=== PATIENT | male | born 1935 | race Caucasian/White ===

== ENCOUNTER 2017-05-27 16:30 | Inpatient (IN) | payer MEDICARE, OTHER ==
[~2017-05-27] VITALS: Ht 172.7 cm; Wt 83.8 kg
[2017-06-03] MEDS ORDERED: LACTATED RINGERS 1,000 ML IV SCH (15:05)
[2017-06-03 15:39] VITALS: BP 173/77
[2017-06-03] MEDS ORDERED: TAMS0.4C2 PO (15:39)
[2017-06-03] MEDS ORDERED: LOVA20TA2 PO (15:39)
[2017-06-03] MEDS ORDERED: LISI-167 PO (15:39)
[2017-06-03] MEDS ORDERED: HYDR-3138 PO (15:39)
[2017-06-03] MEDS ORDERED: GLIM1TAB2 PO (15:39)
[2017-06-03] MEDS ORDERED: METF500T4 PO (15:39)
[2017-06-03] MEDS ORDERED: KETAMINE 10 MG/ML, 20ML ONE (15:51)
[2017-06-03] MEDS ORDERED: FENTANYL PF 250 MCG/5ML ONE (15:52)
[2017-06-03] MEDS ORDERED: REMIFENTANIL 2 MG ONE (15:52)
[2017-06-03] MEDS ORDERED: BACITRACIN 50,000 UNIT ONE (18:32)
[2017-06-03] MEDS ORDERED: BACITRACIN OINT 500U/GM, 15 GM ONE (18:32)
[2017-06-03] MEDS ORDERED: BUPIVACAINE/PF-EPI 0.5% 1:200K ONE (18:32)
[2017-06-03] MEDS ORDERED: THROMBIN 20,000 UNIT VIAL TP ONE ×2 (18:32→19:26)
[2017-06-03] MEDS ORDERED: PROPOFOL 10 MG/ML, 20ML ONE (18:50)
[2017-06-03] MEDS ORDERED: ROCURONIUM 10 MG/ML ONE (18:50)
[2017-06-03] MEDS ORDERED: CEFAZOLIN 1,000 MG ONE (18:50)
[2017-06-03] MEDS ORDERED: DEXAMETHASONE 4 MG/ML, 1ML ONE (18:50)
[2017-06-03] MEDS ORDERED: SUCCINYLCHOLINE 20 MG/ML, 10ML ONE (18:50)
[2017-06-03] MEDS ORDERED: EPHEDRINE 50 MG/ML, 1ML ONE (18:50)
[2017-06-03] MEDS ORDERED: PROPOFOL 10 MG/ML, 50ML ONE (18:50)
[2017-06-03] MEDS ORDERED: BUPIVACAINE/PF-EPI 0.5% 1:200K IM ONE (19:25)
[2017-06-03] MEDS ORDERED: BACITRACIN 50,000 UNIT IRRIG ONE (19:26)
[2017-06-03] MEDS ORDERED: hydrALAzine 20 MG/ML, 1ML IV PRN (20:00)
[2017-06-03] MEDS ORDERED: PROMETHAZINE 25 MG/ML, 1ML IV PRN (20:00)
[2017-06-03] MEDS ORDERED: ACETAMINOPHEN 325 MG TABLET PO PRN (20:00)
[2017-06-03] MEDS ORDERED: OXYcodone 5 MG/5 ML ORAL.SOL UDC PO PRN (20:00)
[2017-06-03] MEDS ORDERED: LABETALOL 5MG/ML, 20ML IV PRN (20:00)
[2017-06-03] MEDS ORDERED: FENTANYL PF 100 MCG/2ML ONE ×2 (20:53→21:21)
[2017-06-03] MEDS ORDERED: ACETAMINOPHEN 650 MG/20.3 ML UDC ONE (20:54)
[2017-06-03] MEDS ORDERED: OXYcodone 5 MG/5 ML ORAL.SOL UDC ONE (20:54)
[2017-06-03] MEDS: FENTANYL PF 100 MCG/2ML IV PRN ×3 (20:58→21:34)
[2017-06-03] MEDS ORDERED: morphine SULFATE 10 MG/ML, 1ML ONE (21:21)
[2017-06-03] MEDS: morphine SULFATE 10 MG/ML, 1ML IV PRN ×2 (21:24→21:40)
[2017-06-03 22:24] VITALS: BP 159/72
[2017-06-03] MEDS ORDERED: MAGNESIUM HYDROXIDE 8%, 30ML UDC PO PRN (23:00)
[2017-06-03] MEDS ORDERED: HYDROcodone/APAP 5/325 TABLET PO PRN (23:00)
[2017-06-03] MEDS ORDERED: PROMETHAZINE 25 MG/ML, 1ML IM PRN (23:00)
[2017-06-03] MEDS ORDERED: DIPHENHYDRAMINE 50 MG CAPSULE PO PRN (23:00)
[2017-06-03] MEDS ORDERED: ONDANSETRON 2MG/ML, 2ML IV PRN (23:00)
[2017-06-03] MEDS ORDERED: DIPHENHYDRAMINE 50 MG/ML, 1ML IVPush PRN (23:00)
[2017-06-03] MEDS ORDERED: METHOCARBAMOL 1,000 MG in DEXTROSE 5% 100 ML IV ONE (23:00)
[2017-06-03] MEDS ORDERED: morphine SULFATE 10 MG/ML, 1ML IV PRN (23:00)
[2017-06-03] MEDS ORDERED: DIPHENHYDRAMINE 50 MG/ML, 1ML IM PRN (23:00)
[2017-06-03] MEDS ORDERED: BISACODYL 10 MG SUPP PR PRN (23:00)
[2017-06-04] MEDS: NS + 20MEQ KCL 1,000 ML IV SCH ×3 (00:04→23:06)
[2017-06-04] MEDS: HYDROcodone/APAP 10/325 MG TABLET PO PRN ×6 (00:34→20:38)
[2017-06-04 02:33] VITALS: BP 133/66
[2017-06-04] MEDS: CEFAZOLIN PMX 2GM/50ML 50 ML IVPB SCH ×3 (02:57→18:44)
[2017-06-04] MEDS: METHOCARBAMOL 750 MG in DEXTROSE 5% 100 ML IV SCH ×3 (06:07→22:51)
[2017-06-04 07:04] VITALS: BP 110/56
[2017-06-04] MEDS ORDERED: metFORMIN 500 MG TABLET PO SCH ×2 (08:00→17:00)
[2017-06-04] MEDS ORDERED: GLIMEPIRIDE 1 MG TABLET PO SCH (08:00)
[2017-06-04] MEDS: SENNA/DOCUSATE TABLET PO SCH (09:00)
[2017-06-04] MEDS ORDERED: LISINOPRIL 10 MG TABLET PO SCH (09:00)
[2017-06-04 15:10] VITALS: BP 141/75
[2017-06-04 18:32] VITALS: BP 116/61
[2017-06-04] MEDS ORDERED: LOVASTATIN 40 MG TABLET PO SCH ×2 (21:00)
[2017-06-04] MEDS ORDERED: TAMSULOSIN 0.4 MG CAP.ER.24H PO SCH (21:00)
[2017-06-04] MEDS ORDERED: LISINOPRIL 10 MG TABLET HOMEMEDPO SCH (21:00)
[2017-06-04] MEDS ORDERED: LOPERAMIDE 1 MG/5 ML, 10ML UDC PO PRN (21:30)
[2017-06-05] MEDS: HYDROcodone/APAP 10/325 MG TABLET PO PRN ×4 (00:56→13:13)
[2017-06-05 02:02] VITALS: BP 115/62
[2017-06-05] MEDS: METHOCARBAMOL 750 MG in DEXTROSE 5% 100 ML IV SCH (06:05)
[2017-06-05] MEDS: SENNA/DOCUSATE TABLET PO SCH (07:53)
[2017-06-05 07:58] VITALS: BP 105/63
[2017-06-05] MEDS ORDERED: GLIMEPIRIDE 1 MG TABLET HOMEMEDPO SCH (08:00)
[2017-06-05] MEDS ORDERED: metFORMIN 500 MG TABLET PO SCH (08:00)
[2017-06-05] MEDS ORDERED: TAMSULOSIN 0.4 MG CAP.ER.24H PO SCH (09:00)
[2017-06-05] MEDS ORDERED: TIZANIDINE 4MG TABLET PO SCH (09:30)
[2017-06-05 13:25] VITALS: BP 99/58
[2017-06-05] MEDS ORDERED: DOCU-30 PO (14:09)
[2017-06-05] MEDS ORDERED: HYDR-3307 PO (14:09)
[2017-06-05] MEDS ORDERED: TIZA4CAP2 PO (14:10)
[2017-06-06] MEDS ORDERED: METHOCARBAMOL 750 MG TABLET PO SCH (07:00)
== END 2017-06-05 14:35 | disposition home health service (06) | DRG 517 ==
LOC: EDSTATUS 16:30 → ORIP 06-03 14:29 → 4NOR 06-03 22:07 → DCLOUNGE 06-05 14:05
PROVIDERS: ADMIT Neurological Surgery; ATTEND Neurological Surgery
PROC: 01NB0ZZ Release Lumbar Nerve, Open Approach (ICD-10-PCS; 2017-06-03)
PROC: 01NR0ZZ Release Sacral Nerve, Open Approach (ICD-10-PCS; principal; 2017-06-03 16:30)
DX: M48.06 Spinal stenosis, lumbar region (principal); M51.36 Other intervertebral disc degeneration, lumbar region; M54.16 Radiculopathy, lumbar region; I10 Essential (primary) hypertension; E78.5 Hyperlipidemia, unspecified; N40.0 Benign prostatic hyperplasia without lower urinary tract symptoms; E11.9 Type 2 diabetes mellitus without complications; Z85.46 Personal history of malignant neoplasm of prostate; Z79.899 Other long term (current) drug therapy; M41.86 Other forms of scoliosis, lumbar region; M48.07 Spinal stenosis, lumbosacral region
CPT/HCPCS: 72100; 82962; J0690; J1100; J2704; J3010; J3480; J0330; J2270; J2800; J7120